=== PATIENT | female | born 1965 | race Caucasian/White ===

== ENCOUNTER → 2023-07-10 07:16 | Outpatient (REF) | payer BC, SELFPAY ==
[2023-07-10 08:03] LABS: % Basophils 0.7 % (0-2); % Eosinophils 3.5 % (0-6); % Immature Granulocytes 0.2 % (0-0.5); % Lymphocytes 17.2 % (20.5-51.1); % Monocytes 11.2 % (1.7-9.3); % Neutrophils 67.2 % (42.2-75.2); Absolute Eosinophils 0.2 10^3/uL (0-0.7); Absolute Lymphocytes 0.7 10^3/uL (1.2-3.4); Absolute Monocytes 0.5 10^3/uL (0.1-0.6); Absolute Neutrophils 2.9 10^3/uL (1.4-6.5); Hematocrit 39.6 % (37.0-47.0); Hemoglobin 13.5 g/dL (12.0-16.0); Mean Corp Hgb Conc. 34.1 g/dL (33.0-37.0); Mean Corpuscular Hgb 31.1 pg (27.0-31.0); Mean Corpuscular Volume 91.2 fL (81.0-99.0); Mean Platelet Volume 8.5 fL (7.4-10.4); Nucleated Red Blood Cells % 0 %; Platelet Count 302 10^3/uL (130-400); Red Blood Cell Count 4.34 10^6/uL (4.20-5.40); Red Cell Dist. Width 12.5 % (11.5-14.5); White Blood Cell Count 4.3 10^3/uL (4.8-10.8)
[2023-07-10 08:44] LABS: ALT (SGPT) 16 U/L (0-35); AST (SGOT) 22 U/L (14-36); Albumin 4.4 g/dl (3.5-5.0); Alkaline Phosphatase 45 U/L (38-126); Blood Urea Nitrogen 18 mg/dl (7-17); Calcium 9.2 mg/dl (8.4-10.2); Carbon Dioxide 26 mmol/L (22-30); Chloride 103 mmol/L (98-107); Glucose 95 mg/dl (70-99); HDL Cholesterol 71 mg/dl; LDL Cholesterol, Calculated 76 mg/dl; Potassium 4.4 mmol/L (3.5-5.1); Sodium 137 mmol/L (135-145); Total Bilirubin 0.7 mg/dl (0.2-1.3); Total Cholesterol 166 mg/dl (50-199); Triglyceride 95 mg/dl (10-149); Very Low Density Lipoprotein 19 mg/dl (0-30); eGFR > 60.00
[2023-07-10 08:59] LABS: FSH 25.1 mIU/ml; Vitamin D, 25-OH*** 116 ng/mL (30-80)
[2023-07-10 09:12] LABS: TSH 0.87 uIU/ml (0.47-4.68)
[2023-07-10 09:33] LABS: Vitamin B12 > 1000 pg/ml (239-931)
[2023-07-11 11:44] LABS: Thyroid Peroxidase Ab (TPO) 0.5 IU/mL (0.0-9.0)
[2023-07-14 06:51] LABS: Free Testosterone 21.8 pg/mL (0.6-3.8); Sex Hormone Binding Globulin 101 nmol/L (17-125); Total Testosterone,Female/Chil 266 ng/dL (9-55)
== END ==
LOC: REG 07:16
PROVIDERS: ATTENDING PHYSICIAN Nurse Practitioner Family; FAMILY PHYSICIAN Internal Medicine
DX: N95.1 Menopausal and female climacteric states (principal); R53.82 Chronic fatigue, unspecified; N95.9 Unspecified menopausal and perimenopausal disorder; E55.9 Vitamin D deficiency, unspecified; E78.5 Hyperlipidemia, unspecified
CPT/HCPCS: 80053; 80061; 82306; 82607; 82670; 83001; 84270; 84402; 84403; 84439; 84443; 84481; 85025; 86376

== ENCOUNTER → 2024-09-16 19:23 | Outpatient (REF) | payer OTHER, SELFPAY | LOC: WDC 19:23 | PROVIDERS: ATTENDING PHYSICIAN Nurse Practitioner Adult Health | DX: Z12.31 Encounter for screening mammogram for malignant neoplasm of breast (principal) | CPT/HCPCS: 77063; 77067 ==

== ENCOUNTER 2024-09-26 06:19 | Day surgery (SDC) | payer OTHER, SELFPAY | END 2024-09-26 10:56 | disposition home or self-care (01) | LOC: GI 06:19 | PROVIDERS: ATTENDING PHYSICIAN Internal Medicine | DX: Z12.11 Encounter for screening for malignant neoplasm of colon (principal); K63.5 Polyp of colon | CPT/HCPCS: 45380; 88305 ==